=== PATIENT | female | born 1985 | race Caucasian/White ===

== ENCOUNTER 2019-02-04 10:42 | Outpatient (CLI) | payer OTHER ==
[~2019-02-04] VITALS: Ht 167.6 cm; Wt 69.5 kg
[~2019-02-04 10:42] MED LIST: MOTRIN 800800 MG/TAB PO; PERCOCET 325 MG1 TA2 PO; bcp
[2019-02-04 10:46] VITALS: PULSE 78; TEMP 98.2
[2019-02-04 11:00] VITALS: PULSE 78; TEMP 98.2
--- NOTE | 2019-02-04 11:06 | NUR ---
1100 PATIENT HERE FOR COMPLAINTS OF BLEEDING. STATES SHE HAD SEX THIS MORNING AND HAS BEEN BLEEDING/SPOTTING SINCE. EFOM BABY FHT 155 BABY VERY ACTIVE AND GOOD ACCELERATIONS NOTED. SVE 0/50/-3. HARD EXAM NOTED DUE TO PATIENT NOT ABLE TO RELAX LEGS. ASSESSMENT COMPLETED. DR WEST CALLED AND UPDATED ON ALL ABOVE INFORMATION. ORDERS TO GET REACTIVE STRIP AND TO SEND PATINET HOME ON PELVIC REST UNTIL SPOTTING NO LONGER.
[2019-02-04 11:51] VITALS: BP 106/70; PULSE 75
[2019-02-04 12:03] VITALS: PULSE 82
--- NOTE | 2019-02-04 12:03 | NUR ---
DR WEST REVIEWED MONITOR STRIP AND ORDERS TO DISMISS TO HOME ALL DISCHARGE INSTRUCTIONS GIVEN TO PATIENT WITH VERBAL UNDERSTANDING
== END 2019-02-04 12:05 | disposition home or self-care (01) ==
LOC: LDRO 10:42 → LDR 11:10 → LDRO 12:05
DX: O46.93 Antepartum hemorrhage, unspecified, third trimester (principal); Z3A.36 36 weeks gestation of pregnancy
CPT/HCPCS: OP

== ENCOUNTER 2019-02-22 09:48 | Inpatient (IN) | payer OTHER ==
[2019-02-22] VITALS (17 sets, daily range): BP systolic 96–128; BP diastolic 47–87; PULSE 64–104; TEMP 97.5–98.1
[~2019-02-22] VITALS: Ht 167.6 cm; Wt 72.7 kg
--- NOTE | 2019-02-22 09:50 | NUR ---
Patient arrives ambulatory for scheduled repeat section. patient reports occasional contractions, denies ROM or vaginal bleeding. Changes into gown, EFM explained and placed. VSS. Updated on plan of care. IV started in left hand, labs obtained. LR infusing. Consents explained and signed. Assessment completed. Preop shave and prep completed.
[2019-02-22] MEDS ORDERED: PRENATAL (10:26)
[2019-02-22 11:05] LABS: BASO % 0.2 % (0.0-2.0); EOS % 0.3 % (0-4.0); GRAN # 8.2 (1.4-6.5); GRAN % 82.2 % (42.2-75.2); HEMOGLOBIN 12.1 g/dl (12.5-16.0); LYMPH # 0.8 (1.2-3.4); LYMPH % 8.4 % (20.0-51.0); MEAN CELL VOLUME 95 fl (80.0-100.0); MEAN CORPUSCULAR HEMOGLOBIN 32 pg (27.0-31.0); MEAN CORPUSCULAR HGB CONC 34 g/dl (33.0-37.0); MONO # 0.8 (0.1-0.6); MONO % 8.5 % (1.7-9.3); PLATELET COUNT 198 K/mm3 (130-400); RED BLOOD COUNT 3.76 M/mm3 (4.10-5.30); REDCELL DISTRIBUTION WIDTH-CV 12.5 % (11.5-14.5)
[2019-02-22 11:08] LABS: HEMATOCRIT 35.6 % (37.0-47.0)
[2019-02-23 00:39] VITALS: BP 102/66; PULSE 69
[2019-02-23 04:35] VITALS: BP 104/61; PULSE 71; TEMP 97.8
[2019-02-23 07:05] VITALS: BP 102/60; PULSE 78; TEMP 97.4
--- NOTE | 2019-02-23 09:16 | NUR ---
Initial visit attempt; Nurse with family. [employer] left card of congratulations for the of their son and information regarding the availability of [facility] at [facility].
[2019-02-23 11:45] VITALS: BP 109/67; PULSE 67; TEMP 97.6
[2019-02-23 17:01] VITALS: BP 92/50; PULSE 105; TEMP 98
--- NOTE | 2019-02-23 18:55 | NUR ---
BABY HAS A SOMEWHAT WEAK SUCK. MOTHER HAS LARGE NIPPLES THAT DO NOT BUNCH WELL SO BABY NOT ABLE TO STAY LATCHED AND IS ON AND OFF.
[2019-02-23 21:00] VITALS: BP 103/56; PULSE 74
[2019-02-24 08:20] VITALS: BP 116/56; PULSE 80; TEMP 98.3
[2019-02-24] MEDS ORDERED: IBU800 M1 PO (11:25)
[2019-02-24] MEDS ORDERED: PERCOCET 325 MG1 TA2 PO (11:25)
[2019-02-24 17:20] VITALS: BP 116/64; PULSE 65; TEMP 97.4
[2019-02-24 19:50] VITALS: BP 122/69; PULSE 84; TEMP 97.7
[2019-02-25 08:39] VITALS: BP 116/68; PULSE 80; TEMP 97.6
== END 2019-02-25 11:10 | disposition home or self-care (01) | DRG 787 ==
LOC: OB 09:48
PROVIDERS: ADMIT Obstetrics & Gynecology
PROC: 10D00Z1 Extraction of Products of Conception, Low, Open Approach (ICD-10-PCS; principal; 2019-02-22)
DX: O34.211 Maternal care for low transverse scar from previous cesarean delivery (principal); O98.52 Other viral diseases complicating childbirth; B00.89 Other herpesviral infection; O77.0 Labor and delivery complicated by meconium in amniotic fluid; Z3A.39 39 weeks gestation of pregnancy; Z37.0 Single live birth
CPT/HCPCS: J0171; J0690; J1885; J2175; J2250; J2270; J2370; J2405; J2590; J2765; J7120